=== PATIENT | male | born 1980 ===

== ENCOUNTER 2018-08-31 16:20 | Emergency (ER) | payer MEDICAID ==
[~2018-08-31] VITALS: Ht 182.9 cm; Wt 76.0 kg
[2018-08-31 17:25] VITALS: BP 157/97
== END 2018-08-31 17:27 | disposition home or self-care (01) ==
LOC: ER 16:21
DX: F41.9 Anxiety disorder, unspecified (principal); R19.7 Diarrhea, unspecified; Z71.1 Person with feared health complaint in whom no diagnosis is made
CPT/HCPCS: 99281; 99283